=== PATIENT | female | born 1985 | race Caucasian/White ===

== ENCOUNTER 2024-11-10 10:16 | Outpatient (AMB) | payer OTHER, SELFPAY ==
--- NOTE | 2024-11-10 10:25 | AM.OFFWIN_ITS ---
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 Patient Tobacco Use Status: Never used Tobacco Allergies iodine Adverse Reaction (Mild, Verified 11/10/24 10:27) rash Do you need a note to return to daycare/school/sports/work: No HPI HPI Comments History of Present Illness Details History of Present Illness - The patient is a 39-year-old female pr esenting with persistent diarrhea, nausea, and vomiting since early the previous morning. - Symptoms continued despite initial imp rovement in the evening but worsened again at midnight with severe diarrhea and concurrent vomiting. - Reports stools with varied colors init ially with no visible blood until recent appearances on toilet paper, likely from hemorrhoidal irritation rather than intestinal bleeding. - Experienced significant weakness and e pisodes of hypotension, documented as low as 90/58 in emergent care yesterday but today is normal. - No sick contacts at home. - Pain is mostly upper middle abdomen b ut also generalized. Physical Exam General: Cooperative, healthy appearing, comfortable, no acute distress and well developed Orientation: Patient oriented x3 Limitations: No limitations Head: Normal to inspection Ears: Hearing grossly normal bilaterally Nose: Normal external nose present Face and sinus: Normal facial exam Eyes: Appearance normal, both eyes and all related structures Neck: Normal visual inspection and Yes full ROM Respiratory: Normal respiratory effort and able to speak in complete sentences. GI: soft, hyperactive bs, negative lopez's, negative mcburneys, slight ttp generalized Skin: No rashes or lesions noted Neuro: Patient oriented x3 Extremities: Normal to inspection PFSH Social History Patient Tobacco Use Status: Never used Tobacco Review of Systems Const All systems reviewed & are unremarkable except as noted in HPI and below Physical Exam Vital Signs: Last Vital Signs Temp 97.8 F 11/10/24 10:26 Pulse 113 H 11/10/24 10:26 BP 122/80 11/10/24 10:26 Pulse Ox 98 11/10/24 10:26 Oxygen Delivery Method Room Air 11/10/24 10:26 Assessment & Plan Assessment & Plan (1) Gastroenteritis: Code(s): K52.9 - Noninfective gastroenteritis and colitis, unspecified Plan: Pt slightly tachycardic, pt well appearing and PE remarkable for generalized abdominal pain. Likely gatroenteritis secondary to norovirus.The clinical symptoms and vital signs, such as persistent diarrhea, nausea, vomiting, low blo od pressure, and mild dehydration, suggest acute gastroenteritis. The patient should focus on maintaining hydration with adequate electrolyte-rich fluids and consuming a bland diet like the BRAT diet to manage gastrointestinal disturbances. Given the community-wide symptoms consistent with viral gastroenteritis, this seems the most likely cause; however, she should monitor for signs of worsening or prolonged symptoms, which would necessitate further medical evaluation. Particular caution is to be taken for the potential indications of internal bleeding or unresolved dehydration, with specific instructions to seek immediate emergency care if these occur. The possible hemorrhoidal bleeding is most likely irritative, and no further investigation is required unless symptomatic resolution is not achieved. Patient was informed and verbally consented to the use of an ambient scribe for clinic note documentation during this visit. Coding Level of Care Code Est Pt Level 3 (26950) Diagnoses Gastroenteritis K52.9
[2024-11-10 10:26] VITALS: BP 122/80; PULSE 113; TEMP 36.6; O2SAT 98
== END 2024-11-10 11:27 | disposition home or self-care (01) ==
PROVIDERS: PCP Internal Medicine; Visit Provider Physician Assistant
DX: K52.9 Noninfective gastroenteritis and colitis, unspecified (principal)